=== PATIENT | male | born 1930 | race Caucasian/White ===

== ENCOUNTER 2017-02-20 15:46 | Observation (INO) ==
--- NOTE | 2017-02-20 16:18 | Emergency Department Note ---
Disposition Clinical Impression: CHF (congestive heart failure) Qualifiers: Congestive heart failure type: unspecified congestive heart failure type Congestive heart failure chronicity: unspecified congestive heart failure chronicity Qualified Code(s): I50.9 - Heart failure, unspecified Dyspnea Qualifiers: Dyspnea type: unspecified Qualified Code(s): R06.00 - Dyspnea, unspecified Disposition: Admitted As Inpatient Condition: Fair General Adult HPI - General Chief complaint: ED Shortness of Breath/Dyspnea Stated complaint: SOB / dizzy Time Seen by Provider: 02/20/17 16:12 Source: patient, family Mode of arrival: ambulatory Limitations: no limitations Nursing Notes Reviewed: Yes Vital Signs Reviewed: Yes - History of Present Illness HPI Narrative: 86-year-old male history of CVA, coronary artery disease, hypertension presents for evaluation of generalized weakness, lightheadedness and dizziness. Patient also reports shortness of breath. Noted symptoms of been intermittent over the past 2-3 weeks. Patient has seen his primary care physician in the interim. Patient notes shortness of breath that is worse with exertion but also at rest. Notes lightheadedness and "dizziness". Patient is not able to accurately describe the dizziness. Not related to motion of the room are spinning. Patient states is not symptomatically currently. Denies any falls. Does note to be on anechoic lesion with Coumadin which he presumes is from a stroke in the past. No deficits noted from the stroke. Denies any abdominal pain but does note a history of diverticulitis. Denies any dark tarry stools or blood in the stool. Denies any chest pain. Reports his last, was a proximally 4 days ago. Pain Scale: 0 - Related Data Allergies Allergy/AdvReac Type Severity Reaction Status Date / Time No Known Allergies Allergy Verified 02/20/17 15:51 All systems ED: reviewed and negative except as stated. Constitutional: Reports: as per HPI. Denies: fever Eyes: Reports: as per HPI ENT ED: Reports: as per HPI Cardiovascular: Reports: as per HPI Respiratory: Reports: as per HPI, dyspnea. Denies: cough Gastrointestinal: Reports: as per HPI. Denies: abdominal pain, nausea, vomiting Genitourinary: Reports: as per HPI Musculoskeletal: Reports: as per HPI Integumentary: Reports: as per HPI Neurological: Reports: as per HPI Psychiatric: Reports: as per HPI Endocrine: Reports: as per HPI Hematological/Lymphatic: Reports: as per HPI Past Medical History - Past Medical History Medical history: Reports: CVA, hypertension, myocardial infarction - Social History Smoking Status: Former smoker Smokeless Tobacco Status: No Alcohol use: Reports: none Drug use: Reports: none Physical Exam - General Limitations: no limitations General appearance: alert, in no apparent distress - Head Head exam: atraumatic, normocephalic, normal inspection - Eye Eye exam: Present: normal appearance, EOMI - ENT ENT exam: normal exam, mucous membranes moist - Neck Neck exam: Present: normal inspection, trachea midline - Chest Chest inspection: Present: normal inspection, symmetric chest wall rise - Respiratory Respiratory exam: Present: normal lung sounds bilaterally. Absent: respiratory distress - Cardiovascular Cardiovascular exam: Present: regular rate, normal rhythm. Absent: systolic murmur - Abdominal Exam Abdominal exam: Present: soft, Non-Tender - Extremities Exam Extremities exam: Present: normal inspection. Absent: pedal edema - Back Exam Back exam: Present: normal inspection. Absent: CVA tenderness (R), CVA tenderness (L) - Neurological Exam Neurological exam: Present: alert, oriented X3, CN II-XII intact - Expanded Neurological Exam Patient oriented to: Present: person, place, time Speech: Present: fluid speech Cranial nerves: EOM function (II, III, IV, ): Normal, facial sensation (V): Normal, facial palsy (VII): Normal, spinal accessory function (XI): Normal, tongue deviation (XII): Normal Cerebellar function: finger to nose: Normal Motor strength - LUE: 5/5 Motor strength - RUE: 5/5 Motor strength - LLE: 5/5 Motor strength - RLE: 5/5 Coma Scale Eye Opening: Spontaneous Coma Scale Motor Response: Obeys Commands Coma Scale Verbal Response: Oriented Coma Scale Total: 15 Course Course Narrative: Patient seen and examined. Patient no acute distress. Patient will get cardiopulmonary evaluation including chest x-ray, EKG and lab work. Disposition is pending. Patient has a nonfocal neurologic exam. Patient is not symptomatically dizziness at this point. Patient denies any history of falls. No reason initially for head CT. - Reevaluation(s) Reevaluation #1: resting in no acute distress. Time: 18:22 Vital Signs Temperature 97.9 F 02/20/17 15:47 Pulse Rate 67 05/06/17 15:47 Respiratory Rate 16 02/20/17 15:47 Blood Pressure 206/102 02/20/17 15:47 O2 Sat by Pulse Oximetry 96 02/20/17 15:47 Temperature 97.9 F 02/20/17 15:47 Pulse Rate 63 02/20/17 17:46 Respiratory Rate 20 02/20/17 17:46 Blood Pressure 183/97 02/20/17 17:46 O2 Sat by Pulse Oximetry 97 02/20/17 17:46 Oxygen Delivery Oxygen Delivery Nasal Cannula Medical Decision Making - [facility] Narrative Medical decision making narrative: 86-year-old male penis for evaluation of dyspnea. Patient's dyspnea likely related to worsening heart failure. Patient had echo performed last urinary EF of 45%. Patient's symptoms described appeared to be related to heart failure with dyspnea on exertion and also reports some orthopnea. Patient was tried on a diuretic pill 1 time dose in the past. Patient was given Lasix 40 mg IV in the emergency department. Patient was not in respiratory compromise to warrant any nitroglycerin. Patient would likely benefit from inpatient admission, trending troponin. Repeat echo as well as gradual diuresis. This information was discussed with the patient. Patient agrees with plan of care. Patient states he has never had a history of heart failure however this is difficult to believe given the patient's heart history. - Medical Records Medical records reviewed: Yes I reviewed the patient's medical records. - Lab Data Lab results reviewed: Yes I reviewed the patient's lab results. Result diagrams: 02/20/17 16:42 02/20/17 16:42 Lab Results 02/20/17 02/20/17 02/20/17 Range/Units 16:42 16:42 16:42 WBC 5.6 (4.3-11.1) K/mcL RBC 4.61 (4.19-5.50) M/mcL Hgb 13.5 (12.9-16.9) g/dL Hct 40.2 (37.5-50.1) % MCV 87.2 (83.0-100.0) fL MCH 29.3 (28.0-33.3) pg MCHC 33.6 (31.6-35.5) g/dL RDW 13.6 (11.5-14.5) % Plt Count 185 (140-400) K/mcL MPV 11.4 (9.4-12.4) fL Immature Gran % 0.4 (0-4) % Seg Neutrophils % 57.8 % Lymphocytes % 24.4 % Monocytes % 12.1 % Eosinophils % 3.9 % Basophils % 1.4 % Neutrophils # 3.2 (1.6-8.9) K/mcL Lymphocytes # 1.4 (0.6-4.6) K/mcL Monocytes # 0.7 (0.0-1.3) K/mcL Eosinophils # 0.2 (0.0-0.6) K/mcL Basophils # 0.1 (0.0-0.2) K/mcL PT (9.4-12.1) Seconds INR Sodium 136 (136-145) mEq/L Potassium 3.9 (3.5-4.5) mEq/L Chloride 102 (98-109) mEq/L Carbon Dioxide 24 (19-29) mEq/L BUN 10 (8-26) mg/dL Creatinine 1.00 (0.72-1.25) mg/dL Est GFR ( Amer) > 60 (> 60) Est GFR (Non-Af Amer) > 60 (> 60) BUN/Creatinine Ratio 10 (6-26) Glucose 92 (70-99) mg/dL Calculated Osmolality 281 (280-300) Lactic Acid 1.2 (0.5-2.2) mmol/L Calcium 9.0 (8.6-10.8) mg/dL Total Bilirubin 1.9 H (0.2-1.2) mg/dL Direct Bilirubin 0.8 H (0.0-0.5) mg/dL Indirect Bilirubin 1.1 (0.0-1.2) mg/dL AST 22 (5-34) Units/L ALT 19 (0-55) Units/L Alkaline Phosphatase 103 (38-126) Units/L Troponin I (0-0.03) ng/mL B-Natriuretic Peptide (0-100) pg/mL Serum Total Protein 6.7 (6.0-8.3) g/dL Albumin 3.7 (3.5-5.0) g/dL Globulin 3.0 (2.4-3.5) g/dL Albumin/Globulin Ratio 1.2 (1.1-2.2) 02/20/17 02/20/17 02/20/17 Range/Units 16:42 16:42 16:42 WBC (4.3-11.1) K/mcL RBC (4.19-5.50) M/mcL Hgb (12.9-16.9) g/dL Hct (37.5-50.1) % MCV (83.0-100.0) fL MCH (28.0-33.3) pg MCHC (31.6-35.5) g/dL RDW (11.5-14.5) % Plt Count (140-400) K/mcL MPV (9.4-12.4) fL Immature Gran % (0-4) % Seg Neutrophils % % Lymphocytes % % Monocytes % % Eosinophils % % Basophils % % Neutrophils # (1.6-8.9) K/mcL Lymphocytes # (0.6-4.6) K/mcL Monocytes # (0.0-1.3) K/mcL Eosinophils # (0.0-0.6) K/mcL Basophils # (0.0-0.2) K/mcL PT 38.3 H (9.4-12.1) Seconds INR 3.4 Sodium (136-145) mEq/L Potassium (3.5-4.5) mEq/L Chloride (98-109) mEq/L Carbon Dioxide (19-29) mEq/L BUN (8-26) mg/dL Creatinine (0.72-1.25) mg/dL Est GFR ( Amer) (> 60) Est GFR (Non-Af Amer) (> 60) BUN/Creatinine Ratio (6-26) Glucose (70-99) mg/dL Calculated Osmolality (280-300) Lactic Acid (0.5-2.2) mmol/L Calcium (8.6-10.8) mg/dL Total Bilirubin (0.2-1.2) mg/dL Direct Bilirubin (0.0-0.5) mg/dL Indirect Bilirubin (0.0-1.2) mg/dL AST (5-34) Units/L ALT (0-55) Units/L Alkaline Phosphatase (38-126) Units/L Troponin I 0.01 (0-0.03) ng/mL B-Natriuretic Peptide 693 H (0-100) pg/mL Serum Total Protein (6.0-8.3) g/dL Albumin (3.5-5.0) g/dL Globulin (2.4-3.5) g/dL Albumin/Globulin Ratio (1.1-2.2) - Radiology Data Radiology results reviewed: Yes I reviewed the patient's radiology results. Chest X-Ray 02/20/17 16:14 IMPRESSION: 1. Cardiomegaly with prominent pulmonary vasculature and basilar opacities with bilateral effusions. Findings are suggestive of mild congestive heart failure. D/ / 02/20/2017 16:43:23 Becky Turner MD / [facility]arter Interpreting Provider: Becky Turner MD - EKG Data EKG #1 EKG results narrative: Ventricular paced rhythm at a rate of 65. No notable ST deviation. QTC of 438. T wave inversions noted in: II, III, aVF, v3, v4, v5 Interpretation: no acute changes, nonspecific ST-T wave changes S.B.A.R. - S.B.A.RDarrel Situation: Demographics, MOA Background: Presenting Complaint Assessment: Vital Signs, Course and respsone to treatment, Patient/Family Expectation Recommendation: Barrier(s) to disposition, Recommendation based on pending studies, treatments, or consults S.B.A.RDarrel Report Given to: Dr. Ken Osorio Repor Time: 18:02
[2017-02-20 16:53] LABS: Basophils # 0.1 K/mcL (0.0-0.2); Basophils % 1.4 %; Eosinophils # 0.2 K/mcL (0.0-0.6); Eosinophils % 3.9 %; Hematocrit 40.2 % (37.5-50.1); Hemoglobin 13.5 g/dL (12.9-16.9); Immature Granulocytes % 0.4 % (0-4); Lymphocytes # 1.4 K/mcL (0.6-4.6); Lymphocytes % 24.4 %; Mean Corpuscular HGB Conc 33.6 g/dL (31.6-35.5); Mean Corpuscular Hemoglobin 29.3 pg (28.0-33.3); Mean Corpuscular Volume 87.2 fL (83.0-100.0); Mean Platelet Volume 11.4 fL (9.4-12.4); Monocytes # 0.7 K/mcL (0.0-1.3); Monocytes % 12.1 %; Neutrophils # 3.2 K/mcL (1.6-8.9); Platelet Count 185 K/mcL (140-400); Red Blood Count 4.61 M/mcL (4.19-5.50); Red Cell Distribution Width 13.6 % (11.5-14.5); Segmented Neutrophils % 57.8 %
[2017-02-20 17:01] LABS: INR 3.4; Prothrombin Time 38.3 Seconds (9.4-12.1)
[2017-02-20 17:08] LABS: Alanine Aminotransferase 19 Units/L (0-55); Albumin 3.7 g/dL (3.5-5.0); Albumin/Globulin Ratio 1.2 (1.1-2.2); Alkaline Phosphatase 103 Units/L (38-126); Aspartate Amino Transferase 22 Units/L (5-34); BUN/Creatinine Ratio 10 (6-26); Bilirubin,Direct 0.8 mg/dL (0.0-0.5); Bilirubin,Indirect 1.1 mg/dL (0.0-1.2); Bilirubin,Total 1.9 mg/dL (0.2-1.2); Blood Urea Nitrogen 10 mg/dL (8-26); Carbon Dioxide 24 mEq/L (19-29); Chloride 102 mEq/L (98-109); Glucose 92 mg/dL (70-99); Osmolality,Calculated 281 (280-300); Potassium 3.9 mEq/L (3.5-4.5); Sodium 136 mEq/L (136-145); Total Protein 6.7 g/dL (6.0-8.3); eGFR For African Americans > 60 (> 60); eGFR For Non-African Americans > 60 (> 60)
[2017-02-20] MEDS ORDERED: Furosemide 40 MG/4 ML VIAL IVP ONE (17:34)
--- NOTE | 2017-02-20 17:35 | Emergency Department Note ---
Disposition Clinical Impression: CHF (congestive heart failure), Dyspnea Disposition: Admitted As Inpatient Condition: Fair General Adult HPI - General Chief complaint: ED Shortness of Breath/Dyspnea Stated complaint: SOB / dizzy Time Seen by Provider: 02/20/17 16:12 Source: patient, family Mode of arrival: ambulatory Limitations: no limitations - History of Present Illness Pain Scale: 0 - Related Data Home Medications Medication Instructions Recorded Confirmed Celecoxib [Celebrex] 200 mg PO DAILY 02/20/17 02/20/17 Docusate Sodium [Stool Softener] 100 mg PO BID 02/20/17 02/20/17 Lisinopril [Zestril] 20 mg PO DAILY 02/20/17 02/20/17 Simvastatin [Zocor] 80 mg PO DAILY 02/20/17 02/20/17 Tamsulosin [Flomax] 0.8 mg PO HS 02/20/17 02/20/17 Warfarin Sodium 5 mg PO DAILY 02/20/17 02/20/17 Allergies Allergy/AdvReac Type Severity Reaction Status Date / Time No Known Allergies Allergy Verified 02/20/17 15:51 Constitutional: Reports: as per HPI. Denies: fever Eyes: Reports: as per HPI ENT ED: Reports: as per HPI Cardiovascular: Reports: as per HPI Respiratory: Reports: as per HPI, dyspnea. Denies: cough Gastrointestinal: Reports: as per HPI. Denies: abdominal pain, nausea, vomiting Genitourinary: Reports: as per HPI Musculoskeletal: Reports: as per HPI Integumentary: Reports: as per HPI Neurological: Reports: as per HPI Psychiatric: Reports: as per HPI Endocrine: Reports: as per HPI Hematological/Lymphatic: Reports: as per HPI Past Medical History - Past Medical History Medical history: Reports: CVA, hypertension, myocardial infarction - Social History Smoking Status: Former smoker Smokeless Tobacco Status: No Alcohol use: Reports: none Drug use: Reports: none Physical Exam - General Limitations: no limitations General appearance: alert, in no apparent distress Course - Reevaluation(s) Reevaluation #1: I saw the patient with the resident, Dr. Lieberman. The patient presented with a complaint of shortness of breath. I will go with the patient he describes orthopnea. He says last night was particularly bad. He also talks about dyspnea on exertion. The severity is indicated by the fact that he cannot walk across a room in his house without "huffing and puffing". On exam he has some crackles at the end of inspiration at the bases posteriorly. He has some edema , right leg greater than left. Patient and deny that the patient has any history of CHF. They state that he is not on any diuretics. However he went to the nurse practitioner at the private physician's office a week and a half ago and was given a one-time dose of diuretic but he does not feel better, in fact he feels worse. Patient is to be admitted to the hospital for diuresis and evaluation of his congestive heart failure. He has a lot of other cardiac issues so I am hard pressed to believe he has never been diagnosed with CHF before but that can be clarified while he is in house. Time: 17:35 Vital Signs Temperature 97.9 F 02/20/17 15:47 Pulse Rate 67 02/20/17 15:47 Respiratory Rate 16 02/20/17 15:47 Blood Pressure 206/102 02/20/17 15:47 O2 Sat by Pulse Oximetry 96 02/20/17 15:47 Temperature 97.9 F 02/21/17 11:43 Pulse Rate 81 02/21/17 11:43 Respiratory Rate 18 02/21/17 11:43 Blood Pressure 140/78 02/21/17 11:43 O2 Sat by Pulse Oximetry 96 02/21/17 11:43 Oxygen Delivery Oxygen Delivery Nasal Cannula Medical Decision Making - Lab Data Result diagrams: 02/21/17 03:46 02/21/17 03:46 Lab Results 02/20/17 02/20/17 02/20/17 Range/Units 16:42 16:42 16:42 WBC 5.6 (4.3-11.1) K/mcL RBC 4.61 (4.19-5.50) M/mcL Hgb 13.5 (12.9-16.9) g/dL Hct 40.2 (37.5-50.1) % MCV 87.2 (83.0-100.0) fL MCH 29.3 (28.0-33.3) pg MCHC 33.6 (31.6-35.5) g/dL RDW 13.6 (11.5-14.5) % Plt Count 185 (140-400) K/mcL MPV 11.4 (9.4-12.4) fL Immature Gran % 0.4 (0-4) % Seg Neutrophils % 57.8 % Lymphocytes % 24.4 % Monocytes % 12.1 % Eosinophils % 3.9 % Basophils % 1.4 % Neutrophils # 3.2 (1.6-8.9) K/mcL Lymphocytes # 1.4 (0.6-4.6) K/mcL Monocytes # 0.7 (0.0-1.3) K/mcL Eosinophils # 0.2 (0.0-0.6) K/mcL Basophils # 0.1 (0.0-0.2) K/mcL PT (9.4-12.1) Seconds INR Sodium 136 (136-145) mEq/L Potassium 3.9 (3.5-4.5) mEq/L Chloride 102 (98-109) mEq/L Carbon Dioxide 24 (19-29) mEq/L BUN 10 (8-26) mg/dL Creatinine 1.00 (0.72-1.25) mg/dL Est GFR ( Amer) > 60 (> 60) Est GFR (Non-Af Amer) > 60 (> 60) BUN/Creatinine Ratio 10 (6-26) Glucose 92 (70-99) mg/dL Calculated Osmolality 281 (280-300) Lactic Acid 1.2 (0.5-2.2) mmol/L Calcium 9.0 (8.6-10.8) mg/dL Total Bilirubin 1.9 H (0.2-1.2) mg/dL Direct Bilirubin 0.8 H (0.0-0.5) mg/dL Indirect Bilirubin 1.1 (0.0-1.2) mg/dL AST 22 (5-34) Units/L ALT 19 (0-55) Units/L Alkaline Phosphatase 103 (38-126) Units/L Troponin I (0-0.03) ng/mL B-Natriuretic Peptide (0-100) pg/mL Serum Total Protein 6.7 (6.0-8.3) g/dL Albumin 3.7 (3.5-5.0) g/dL Globulin 3.0 (2.4-3.5) g/dL Albumin/Globulin Ratio 1.2 (1.1-2.2) 05/06/17 05/06/17 05/06/17 Range/Units 16:42 16:42 16:42 WBC (4.3-11.1) K/mcL RBC (4.19-5.50) M/mcL Hgb (12.9-16.9) g/dL Hct (37.5-50.1) % MCV (83.0-100.0) fL MCH (28.0-33.3) pg MCHC (31.6-35.5) g/dL RDW (11.5-14.5) % Plt Count (140-400) K/mcL MPV (9.4-12.4) fL Immature Gran % (0-4) % Seg Neutrophils % % Lymphocytes % % Monocytes % % Eosinophils % % Basophils % % Neutrophils # (1.6-8.9) K/mcL Lymphocytes # (0.6-4.6) K/mcL Monocytes # (0.0-1.3) K/mcL Eosinophils # (0.0-0.6) K/mcL Basophils # (0.0-0.2) K/mcL PT 38.3 H (9.4-12.1) Seconds INR 3.4 Sodium (136-145) mEq/L Potassium (3.5-4.5) mEq/L Chloride (98-109) mEq/L Carbon Dioxide (19-29) mEq/L BUN (8-26) mg/dL Creatinine (0.72-1.25) mg/dL Est GFR ( Amer) (> 60) Est GFR (Non-Af Amer) (> 60) BUN/Creatinine Ratio (6-26) Glucose (70-99) mg/dL Calculated Osmolality (280-300) Lactic Acid (0.5-2.2) mmol/L Calcium (8.6-10.8) mg/dL Total Bilirubin (0.2-1.2) mg/dL Direct Bilirubin (0.0-0.5) mg/dL Indirect Bilirubin (0.0-1.2) mg/dL AST (5-34) Units/L ALT (0-55) Units/L Alkaline Phosphatase (38-126) Units/L Troponin I 0.01 (0-0.03) ng/mL B-Natriuretic Peptide 693 H (0-100) pg/mL Serum Total Protein (6.0-8.3) g/dL Albumin (3.5-5.0) g/dL Globulin (2.4-3.5) g/dL Albumin/Globulin Ratio (1.1-2.2) Attestation Statement - Attestation Attestation: I, Dr. Fitzgerald, examined this patient [id number] and my medical decision- making was reviewed with Dr. Lieberman, Resident Physician. I agree with the documented findings, disposition and treatment plan as described except to the extent set forth below. Please see my progress notes for details.
[2017-02-20] MEDS ORDERED: Acetaminophen 325 MG TABLET PO PRN (19:50)
[2017-02-20] MEDS ORDERED: Ondansetron 4 MG/2 ML VIAL IVP PRN (19:50)
--- NOTE | 2017-02-20 20:02 | Internal Med History&Physical ---
Date of Encounter: 02/20/17 Time of Encounter: 19:10 Assessment and Plan (1) CHF exacerbation Current visit: Yes Status: Acute Patient has a history of CHF. His old chart has been reviewed, echo shows LVEF 45%. He has increased shortness of breath. Chest x-ray shows pulmonary congestion. BNP is elevated. - We will treat patient with CHF exacerbation. - Lasix 40 mg IV twice a day - Continuous cardiac monitoring - Strict intake and output - Continue beta swapna and BROOKE inhibitor Qualifiers: Congestive heart failure type: systolic Qualified Code(s): I50.23 - Acute on chronic systolic (congestive) heart failure (2) A-fib Current visit: Yes Status: Chronic Heart rate is well controlled. On coumadin. Qualifiers: Atrial fibrillation type: chronic Qualified Code(s): I48.2 - Chronic atrial fibrillation (3) Hypertension Current visit: Yes Status: Acute Continue home medication. Hydralazine IV as needed. Closely follow up blood pressure. Qualifiers: Hypertension type: essential hypertension Qualified Code(s): I10 - Essential (primary) hypertension (4) DVT prophylaxis Current visit: Yes Status: Acute Patient is on Coumadin Internal Medicine - H&P: HPI Chief complaint: Shortness of breath Admitted From: Home Plans for Post Hospital Care: Home History of present illness: Mr. Garcia is a 86 year old male with a known history of systolic CHF, LVEF 45%, A. fib, hypertension present to ER for worsening shortness of breath and leg swelling. Patient said that he started to have shortness of breath since 3 weeks ago, symptoms is getting worse, with bilateral leg swelling. Patient complaint mild nausea, no vomiting. He denies chest pain. He has mild lightheaded and dizziness. He has no fever. He has a mild nonproductive cough. Patient was treated at CHF exacerbation in the emergency room and was given Lasix 40 mg IV. After treatment symptoms improved significantly. Patient is admitted for further management. I have discussed the CODE STATUS with patient. He is full code. Past Med Surg Social Fam HX - Past Medical History Medical history: CVA, hypertension, myocardial infarction - Social History Smoking Status: Former smoker Smokeless Tobacco Status: No Alcohol use: none Drug use: none Internal Medicine - H&P: Meds Allergies No Known Allergies Allergy (Verified 02/20/17 15:51) All Systems PM: A 10-system review of systems was performed and is negative for pertinent findings except as documented above in the HPI. - Constitutional Vitals: Temp Pulse Resp BP Pulse Ox 97.4 F L 76 18 201/96 94 02/20/17 19:20 02/20/17 19:20 02/20/17 19:20 02/20/17 19:20 02/20/17 19:20 General appearance: Present: A&O X 3, no acute distress, answers questions appropriately - Head Head exam: Present: atraumatic, normocephalic - Eye Eye exam: Present: PERRL, conjuntiva pink, sclera anicteric Pupils: Present: PERRL - Neck Neck exam general surgery: Present: supple, trachea midline. Absent: lymphadenopathy - Respiratory Respiratory exam: Present: CTAB. Absent: accessory muscle use, rales, rhonchi, wheezes - Cardiovascular Cardiovascular exam: Present: irregular rhythm, +S1, +S2. Absent: diastolic murmur, gallop, rubs, systolic murmur - GI/Abdominal GI/Abdominal exam: Present: normal bowel sounds, soft, no peritoneal signs. Absent: distended, tenderness - Extremities Exam Extremities exam: Present: pedal edema (Bilateral lower extremity edema up to knee), warm, radial pulses palpable and symetrical. Absent: calf tenderness, cyanotic - Neurological Exam Neurological exam: Present: CN II-XII intact, oriented X3, no focal deficits. Absent: pronater drift, facial droop, speech deficit - Skin Skin exam: Present: dry, intact Internal Med - H&P Results - Labs CBC & Chem 7: 02/20/17 16:42 02/20/17 16:42
[2017-02-21 04:02] LABS: Basophils % 0.7 %; Eosinophils # 0.2 K/mcL (0.0-0.6); Eosinophils % 4.1 %; Hematocrit 38.4 % (37.5-50.1); Hemoglobin 13.1 g/dL (12.9-16.9); Immature Granulocytes % 0.2 % (0-4); Lymphocytes # 1.3 K/mcL (0.6-4.6); Lymphocytes % 23.8 %; Mean Corpuscular HGB Conc 34.1 g/dL (31.6-35.5); Mean Corpuscular Hemoglobin 29.2 pg (28.0-33.3); Mean Corpuscular Volume 85.7 fL (83.0-100.0); Mean Platelet Volume 11.2 fL (9.4-12.4); Monocytes # 0.6 K/mcL (0.0-1.3); Neutrophils # 3.2 K/mcL (1.6-8.9); Platelet Count 184 K/mcL (140-400); Red Blood Count 4.48 M/mcL (4.19-5.50); Red Cell Distribution Width 13.5 % (11.5-14.5); Segmented Neutrophils % 59.2 %
[2017-02-21 04:10] LABS: Prothrombin Time 45.2 Seconds (9.4-12.1)
[2017-02-21 04:19] LABS: BUN/Creatinine Ratio 11 (6-26); Blood Urea Nitrogen 9 mg/dL (8-26); Calcium 8.8 mg/dL (8.6-10.8); Carbon Dioxide 27 mEq/L (19-29); Chloride 104 mEq/L (98-109); Glucose 94 mg/dL (70-99); Magnesium 2.1 mg/dL (1.6-2.6); Osmolality,Calculated 286 (280-300); Potassium 3.3 mEq/L (3.5-4.5); Sodium 139 mEq/L (136-145); eGFR For African Americans > 60 (> 60); eGFR For Non-African Americans > 60 (> 60)
[2017-02-21] MEDS ORDERED: Potassium Chloride Elixir 20 MEQ/15 ML UDC PO ONE (07:52)
[2017-02-21] MEDS ORDERED: Furosemide 40 MG/4 ML VIAL IVP SCH (08:00)
[2017-02-21] MEDS: Lisinopril 20 MG TABLET PO SCH (08:24)
[2017-02-21] MEDS: Furosemide 40 MG/4 ML VIAL IVP SCH ×2 (08:24→17:15)
[2017-02-21] MEDS: Celecoxib 200 MG CAPSULE PO SCH (08:24)
--- NOTE | 2017-02-21 12:12 | Internal Med Progress Note ---
Date of Encounter: 02/21/17 Time of Encounter: 11:25 - Assessment and plan (1) CHF exacerbation Current Visit: Yes Status: Acute Assessment and plan: Patient presented with significant dyspnea, pedal edema, hypoxia, elevated BNP; improving currently. Troponins noted to be normal. Continue IV Lasix, noted to have good urine output with neck negative fluid balance of at least 3 L. Monitor and replete electrolytes. Continue fluid restriction, urine output monitoring. Continue beta swapna and telemetry monitoring. Echocardiogram from April 2016 shows 45% EF, mild biventricular dilation, mild to moderate aortic and tricuspid regurgitation, mild pulmonary hypertension. Repeat echocardiogram. Supportive care, supplemental oxygen. Qualifiers: Congestive heart failure type: systolic Qualified Code(s): I50.23 - Acute on chronic systolic (congestive) heart failure (2) CAD (coronary artery disease) Current Visit: Yes Status: Chronic Assessment and plan: Troponins normal. Continue telemetry monitoring and home medications. Qualifiers: Coronary Disease-Associated Artery/Lesion type: bypass graft [place] vs. transplanted heart: [place] heart Associated angina: without angina Qualified Code(s): I25.810 - Atherosclerosis of coronary artery bypass graft(s) without angina pectoris (3) A-fib Current Visit: Yes Status: Chronic Assessment and plan: Currently rate controlled. s/p PPM placement. Continue beta swapna, long-term anticoagulation with Coumadin. Coumadin is currently held due to INR of 4. Qualifiers: Atrial fibrillation type: chronic Qualified Code(s): I48.2 - Chronic atrial fibrillation (4) Hypertension Current Visit: Yes Status: Chronic Assessment and plan: Noted to have uncontrolled hypertension initially, currently improving with home medications. Qualifiers: Hypertension type: essential hypertension Qualified Code(s): I10 - Essential (primary) hypertension - Subjective Interval history: Feels much better with IV Lasix per patient; improving shortness of breath and fatigue; continues to have hacking intermittent cough with occasional mucus production; no fever/chills; improving leg swelling; - Constitutional Vitals: Temp Pulse Resp BP Pulse Ox 97.9 F 81 18 140/78 96 02/21/17 11:43 02/21/17 11:43 02/21/17 11:43 02/21/17 11:43 02/21/17 11:43 General appearance: Present: A&O X 3, answers questions appropriately - Respiratory Respiratory exam: Present: wheezes (B/L end-expiratory wheezing at B/L bases). Absent: accessory muscle use, rales, rhonchi - Cardiovascular Cardiovascular exam: Present: irregular rhythm, +S1, +S2. Absent: diastolic murmur, gallop, rubs, systolic murmur - GI/Abdominal GI/Abdominal exam: Present: normal bowel sounds, soft, no peritoneal signs. Absent: distended, tenderness - Extremities Exam Extremities exam: Present: full ROM, pedal edema (1+ pitting pedal edema B/L), warm, radial pulses palpable and symetrical. Absent: calf tenderness, cyanotic Internal Medicine: Result - Labs CBC & Chem 7: 02/21/17 03:46 02/21/17 03:46 Labs: Short CBC 02/21/17 Range/Units 03:46 WBC 5.3 (4.3-11.1) K/mcL Hgb 13.1 (12.9-16.9) g/dL Hct 38.4 (37.5-50.1) % Plt Count 184 (140-400) K/mcL Neutrophils # 3.2 (1.6-8.9) K/mcL BMP 02/21/17 03:46 Sodium 139 Potassium 3.3 L Chloride 104 Carbon Dioxide 27 BUN 9 Creatinine 0.85 Glucose 94 Calcium 8.8 - ABG Interpretation ABG results: PT/INR, D-dimer PT 45.2 Seconds (9.4-12.1) H* 02/21/17 03:46 Consult Discharge Plan - Plan Referrals: Chato Leos MD [Primary Care Provider] -
--- NOTE | 2017-02-21 16:45 | ECHO - Doppler Report ---
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 Indeterminate left venticular diastoic function Atypical septal motion. RV is normal in size. Function not well evaluated. Mild- moderate aortic regurgitation. Mild mitral regurgitation. Mild-moderate tricuspid regurgitation. Mild pulmonic regurgitation. Mild pulmonary hypertension. Left Ventricular Wall Motion: Rest Echo Findings The mid anterior septal and basal anterior septal machado were hypokinetic. The mid inferior lateral and basal inferior lateral machado were not visualized. All other wall segments showed normal motion. Findings: Study Quality * Technically adequate exam. ECG Findings * Predominately paced with intermittent conduction. Left Ventricle * Indeterminate diastolic function. * LVEF 50%. * Normal LV size. Aorta * Normally sized aortic root. Left Atrium * Severely dilated left atrium. Mitral Valve * No mitral stenosis. * Mild mitral regurgitation. * Mildly calcified mitral valve leaflets. Aortic Valve * Trileaflet aortic valve. * Mildly calcified aortic valve leaflets. * No aortic stenosis. * Mild-moderate aortic regurgitation. Tricuspid Valve * Normal tricuspid valve structure. * Mild-moderate tricuspid regurgitation. * Estimated RA pressure is 3 mmHg. * Estimated RVSP is 47 mmHg. * Mild pulmonary hypertension. Pulmonic Valve * Pulmonic valve is not well visualized. * No pulmonic stenosis. * Mild pulmonic regurgitation. Pulmonary Artery * Pulmonary artery not well visualized. Right Atrium * Normal right atrial size. Right Ventricle * RV is normal in size. Lat S Bryon may not be reliable due to pacing. Function is not well evaluated. Subcostal views are not well visualized. Interatrial Septum * No evidence of PFO by color Doppler. Pericardium * There is no pericardial effusion present. IVC * Normal IVC dimensions and inspiratory collapse. History Hypertension Years 20 Packs 2 Myocardial Infarction Coronary Artery Bypass Graft Congestive Heart Failure Pacer/ICD Implant 04/28/2016 a Previous Echo was performed. Measurements: BP: 145/ 70 2D Normal Values RVIDd: 4.00 cm <2.7 cm IVSd: 2.20 cm 0.6 - 1.0 cm LVIDd: 4.20 cm 3.7 - 5.6 cm LVPWd: 1.50 cm 0.6 - 1.1 cm LVIDs: 3.30 cm 1.5 - 3.6 cm LA: 5.10 cm 2.0 - 4.0cm %FS: 21.40 cm >25 % LVOT Diam: 2.00 cm LA volume: 229 Mitral Valve Peak E:.92 m/sec LVOT Peak Bryon:1.08 m/sec Mean Bryon:.71 m/sec Peak Grad:5.00 mmHg Mean Grad:2.00 mmHg Aortic Valve Peak Bryon:2.15 m/sec Mean Bryon:1.49 m/sec Peak Grad:18.00 mmHg Mean Grad:10.00 mmHg AI pressure Half-time: 638.00 msec Tricuspid Valve TV Regurg Peak Grad: 44.00mmHg TV Regurg Peak Bryon: 3.31m/sec Updated by Ny Carbajal on 02/21/2017 4:38:00 PM electronically signed on 02/21/2017 4:39:17 PM with status of Final Wall Motion Alber[place]: 1=Normal, 2=Hypokinesis, 3=Akinesis, 4=Dyskinesis, 5=Aneurysmal, 6=Hyperkinetic, X=Not Visualized (Blank)=Missing
[2017-02-21] MEDS ORDERED: Warfarin perPT PO PRN (18:00)
--- NOTE | 2017-02-21 18:02 | Electrocardiograph Report ---
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
[2017-02-22 03:52] LABS: INR 3.8; Prothrombin Time 42.4 Seconds (9.4-12.1)
[2017-02-22 04:04] LABS: BUN/Creatinine Ratio 14 (6-26); Blood Urea Nitrogen 15 mg/dL (8-26); Calcium 8.5 mg/dL (8.6-10.8); Carbon Dioxide 26 mEq/L (19-29); Chloride 103 mEq/L (98-109); Glucose 88 mg/dL (70-99); Magnesium 1.8 mg/dL (1.6-2.6); Osmolality,Calculated 286 (280-300); Potassium 3.6 mEq/L (3.5-4.5); Sodium 138 mEq/L (136-145); eGFR For African Americans > 60 (> 60); eGFR For Non-African Americans > 60 (> 60)
[2017-02-22] MEDS: Celecoxib 200 MG CAPSULE PO SCH (08:07)
[2017-02-22] MEDS: Furosemide 40 MG/4 ML VIAL IVP SCH (08:07)
[2017-02-22] MEDS: Lisinopril 20 MG TABLET PO SCH (08:07)
[2017-02-22 11:11] VITALS: BP 132/73
--- NOTE | 2017-02-22 13:39 | Discharge Summary ---
Date of Encounter: 02/22/17 Time of Encounter: 11:40 - Discharge Diagnosis (1) CHF exacerbation Priority: Primary Status: Acute Qualifiers: Congestive heart failure type: combined Qualified Code(s): I50.43 - Acute on chronic combined systolic (congestive) and diastolic (congestive) heart failure (2) CAD (coronary artery disease) Priority: Secondary Status: Chronic Qualifiers: Coronary Disease-Associated Artery/Lesion type: bypass graft [place] vs. transplanted heart: [place] heart Associated angina: without angina Qualified Code(s): I25.810 - Atherosclerosis of coronary artery bypass graft(s) without angina pectoris (3) A-fib Priority: Secondary Status: Chronic Qualifiers: Atrial fibrillation type: chronic Qualified Code(s): I48.2 - Chronic atrial fibrillation (4) Hypertension Priority: Secondary Status: Chronic Qualifiers: Hypertension type: essential hypertension Qualified Code(s): I10 - Essential (primary) hypertension - Discharge Medications Prescriptions: Furosemide [Lasix] 20 mg PO DAILY #30 tablet Home Medications: Celecoxib [Celebrex] 200 mg PO DAILY 02/20/17 [History] Docusate Sodium [Stool Softener] 100 mg PO BID 02/20/17 [History] Lisinopril [Zestril] 20 mg PO DAILY 02/20/17 [History] Simvastatin [Zocor] 80 mg PO DAILY 02/20/17 [History] Tamsulosin [Flomax] 0.8 mg PO HS 02/20/17 [History] Psyllium Husk [Metamucil] 5 gm PO BID 02/21/17 [History] Furosemide [Lasix] 20 mg PO DAILY #30 tablet 02/22/17 [Rx] Warfarin Sodium 5 mg PO DAILY #0 02/22/17 [Rx] Allergies/Adverse Reactions: Allergies No Known Allergies Allergy (Verified 02/20/17 15:51) Procedures/tests Complete & Pending: Procedures Performed prior 72 hours Category Date Time Status EV echocardiogram Routine Y 02/21/17 20:14 Completed Date of admission: 02/20/17 18:22 Primary care physician: Chato Leos MD Discharging clinician: Justina Allen Anticipated date of discharge: 02/22/17 - Patient Status Disposition: Home, Self-Care Condition: Good Functional capacity at discharge: independent ambulation Overall status at discharge: patient is progressing back to baseline - Discharge Instructions Instructions: Furosemide (By mouth), Heart Failure (DC) Follow Up With: Chato Huston MD [Partnered Physician] - 03/05/17 12:00 pm Krzysztof Gonzalez MD [Non-Partnered Physician] - 02/24/17 10:00 am Additional Instructions: F/up with /Cardiology in 2-3 weeks - Diet and Activity Activity: resume usual activities as tolerated Diet: low fat, low cholesterol, low salt diet (fluid restriction to 1.5L/day) Hospital course: Mr. Garcia is a 86 year old male with the above medical problems who was admitted with worsening shortness of breath and leg swelling. He was noted to have volume overload and hypoxia and was started on IV Lasix with fluid restriction, urine output monitoring. He was noted to have significant diuresis and weight loss along with neck negative fluid balance of at least 2 L during this admission. He felt symptomatically much better and no longer requires supplemental oxygen. Echocardiogram was done which showed mildly decreased EF at 50%, indeterminate left ventricular diastolic function, mild to moderate aortic and tricuspid regurgitation (old findings), mild pulmonary hypertension. He was instructed regarding fluid restriction and is being discharged on low- dose oral Lasix and is encouraged to follow up with cardiology as outpatient. Patient was noted to have supratherapeutic INR at admission and Coumadin has been held. He is on anticoagulation for chronic atrial fibrillation. Coumadin is recommended to be restarted in 2 days with close INR follow-up as outpatient. - Time Spent with Patient Total time spent providing and/or coordinating discharge services: Greater than 30 minutes (45 min) - Constitutional Vitals: Temp Pulse Resp BP Pulse Ox 97.6 F 62 16 132/73 95 02/22/17 11:11 02/22/17 11:11 02/22/17 11:11 02/22/17 11:11 02/22/17 11:11 General appearance: Present: A&O X 3, answers questions appropriately - Respiratory Respiratory exam: Present: CTAB. Absent: accessory muscle use, rales, rhonchi, wheezes - Cardiovascular Cardiovascular exam: Present: irregular rhythm, +S1, +S2. Absent: diastolic murmur, gallop, rubs, systolic murmur
[2017-02-22] MEDS ORDERED: Aminoglycoside Consult 1 EACH MC ONE (14:39)
== END 2017-02-22 14:40 | disposition home or self-care (01) ==
LOC: 3BNU 15:46 → EMEROO 15:46 → SUATTDRO 18:22 → 3BNU 18:56
PROVIDERS: ADMIT Internal Medicine; ATTEND Internal Medicine

== ENCOUNTER 2017-12-27 20:58 | Inpatient (IN) ==
[2017-12-27] MEDS ORDERED: Furosemide 40 MG/4 ML VIAL IVP ONE (23:00)
[2017-12-27] MEDS ORDERED: Nitroglycerin 0.4 MG TAB.SUBL SL ONE (23:01)
[2017-12-27 23:04] LABS: Basophils # 0.1 K/mcL (0.0-0.2); Basophils % 0.9 %; Eosinophils # 0.2 K/mcL (0.0-0.6); Eosinophils % 2.9 %; Hematocrit 39.5 % (37.5-50.1); Hemoglobin 12.8 g/dL (12.9-16.9); Immature Granulocytes % 0.4 % (0-4); Lymphocytes # 1.3 K/mcL (0.6-4.6); Lymphocytes % 22.6 %; Mean Corpuscular HGB Conc 32.4 g/dL (31.6-35.5); Mean Corpuscular Volume 86.4 fL (83.0-100.0); Mean Platelet Volume 11.9 fL (9.4-12.4); Monocytes # 0.6 K/mcL (0.0-1.3); Monocytes % 10.6 %; Neutrophils # 3.5 K/mcL (1.6-8.9); Platelet Count 129 K/mcL (140-400); Red Blood Count 4.57 M/mcL (4.19-5.50); Red Cell Distribution Width 15.2 % (11.5-14.5); Segmented Neutrophils % 62.6 %
[2017-12-27 23:22] LABS: BUN/Creatinine Ratio 13 (6-26); Blood Urea Nitrogen 14 mg/dL (8-23); Calcium 9.2 mg/dL (8.6-10.3); Carbon Dioxide 25 mEq/L (23-29); Chloride 104 mEq/L (98-107); Glucose 99 mg/dL (70-105); Osmolality,Calculated 289 (280-300); Sodium 139 mEq/L (136-145); eGFR For African Americans > 60 (> 60); eGFR For Non-African Americans > 60 (> 60)
[2017-12-27 23:23] LABS: Troponin I 0.03 ng/mL (< 0.04)
--- NOTE | 2017-12-27 23:25 | Emergency Department Note ---
START Narrative - START START: I examined this patient and my medical decision-making was reviewed with the Resident Physician. I agree with the documented findings, disposition and treatment plan as described except to the extent set forth below. 87 year old male presents to the ED with dyspnea and does not wear supplmental oxygen at home and states that he felt dyspneic and is currenlty on lasix 80mg at home and has been admitted for CHF inthe past one year ago. He states that he feels like this is simliar to that episode in the past. We will do cardiopulmoary workup and treat with lasix and likely admit tomediicne. He is 97 % on 3LNC
--- NOTE | 2017-12-27 23:40 | Emergency Department Note ---
Disposition Clinical Impression: CHF (congestive heart failure) Qualifiers: Heart failure type: unspecified Heart failure chronicity: acute on chronic Qualified Code(s): I50.9 - Heart failure, unspecified Disposition: Admitted As Inpatient Condition: Fair Time of Disposition: 01:42 SOB HPI - General Chief Complaint: ED Shortness of Breath/Dyspnea Stated Complaint: CORNELIO Time Seen by Provider: 12/27/17 22:34 Source: patient Limitations: no limitations Nursing Notes Reviewed: Yes Vital Signs Reviewed: Yes - History of Present Illness 87-year-old male presenting to department with shortness of breath. Patient has no history of COPD or asthma. He is not on any oxygen. Said for the last 2 days he has been short of breath at rest and is worsened whenever he gets up and ambulates. He is having any chest pain. Patient does have history of CHF he does take Lasix regularly. Patient did have a acute CHF exacerbation approximately one year ago but has been doing well since then. Otherwise he has no cardiac problems. He says he has had decreased bowel movements as of recently which is normal for him. He does take Ex-Lax regularly to help with his bowel movements. Patient is a a bowel movement today was a little bit smaller than normal. Patient otherwise is not having any chest pain or abdominal pain or pain or tingling of the arms or legs change in bowel movements , pain with urination, back pain, neck pain, headaches, blurry vision, fevers, nausea, vomiting. - Related Data Home Medications Medication Instructions Recorded Confirmed Celecoxib [Celebrex] 200 mg PO DAILY 02/20/17 02/21/17 Docusate Sodium [Stool Softener] 100 mg PO BID 02/20/17 02/21/17 Lisinopril [Zestril] 20 mg PO DAILY 02/20/17 02/21/17 Simvastatin [Zocor] 80 mg PO DAILY 02/20/17 02/21/17 Tamsulosin [Flomax] 0.8 mg PO HS 02/20/17 02/21/17 Psyllium Husk [Metamucil] 5 gm PO BID 02/21/17 02/21/17 Previous Rx's Medication Instructions Recorded Furosemide [Lasix] 20 mg PO DAILY #30 tablet 02/22/17 Warfarin Sodium 5 mg PO DAILY #0 02/22/17 Polyethylene Glycol 3350 [MiraLAX 1 scoop PO DAILY #510 gm 03/30/17 Powder Bulk 17.9 Oz] Allergies Allergy/AdvReac Type Severity Reaction Status Date / Time No Known Allergies Allergy Verified 02/20/17 15:51 Review of Systems: 10 point review of systems done and negative unless otherwise stated in the history of present illness. All systems ED: reviewed and negative except as stated. Review of Systems: As Per HPI Past Medical History - Past Medical History Attestation: Yes The following information was validated with the patient. Source: patient Medical history: Reports: CVA, hypertension, myocardial infarction Psychiatric history: Reports: no psych history - Social History Smoking Status: Former smoker Smokeless Tobacco Status: No Alcohol use: Reports: none Drug use: Reports: none Physical Exam - General Limitations: no limitations General appearance: alert, in no apparent distress - Head Head exam: atraumatic, normocephalic, normal inspection - Eye Eye exam: Present: normal appearance, PERRL, EOMI - ENT ENT exam: normal exam, normal oropharynx, mucous membranes moist - Neck Neck exam: Present: normal inspection, full ROM, trachea midline - Chest Chest inspection: Present: normal inspection, symmetric chest wall rise - Respiratory Respiratory exam: Present: normal lung sounds bilaterally, other (Mild rales bilaterally in the bases.) - Cardiovascular Cardiovascular exam: Present: regular rate, normal rhythm, normal heart sounds - Abdominal Exam Abdominal exam: Present: soft, Non-Tender. Absent: tenderness, distention, guarding, rebound, rigidity - Extremities Exam Extremities exam: Present: normal inspection, full ROM, normal capillary refill , pedal edema (1+ pitting edema bilaterally.). Absent: tenderness - Expanded Lower Extremity Exam Neurovascular/Tendon exam: Present: normal capillary refill. Absent: motor deficit, sensory deficit, tendon deficit - Neurological Exam Neurological exam: Present: alert, oriented X3 - Skin Skin exam: Present: warm, dry, intact, normal color Course Course Narrative: 87-year-old male presents to the emergency department with shortness of breath. He was placed on 4 L oxygen and still satting around 95% while on that he is never on oxygen in the past. This most likely due to CHF exacerbation. We will get CBC, BMP, BNP, EKG as well as troponin and EKG and chest x-ray. Patient is okay with this plan. Disposition pending results. Vital Signs Temperature 97.7 F 12/27/17 21:00 Pulse Rate 72 12/27/17 21:00 Respiratory Rate 18 12/27/17 21:00 Blood Pressure 208/113 12/27/17 21:00 O2 Sat by Pulse Oximetry 95 12/27/17 21:00 Temperature 97.7 F 12/27/17 21:00 Pulse Rate 78 12/28/17 00:25 Respiratory Rate 18 12/28/17 01:06 Blood Pressure 151/95 12/28/17 01:06 O2 Sat by Pulse Oximetry 94 12/28/17 00:25 Oxygen Delivery Oxygen Delivery Room Air Shortness of Breath/Dyspnea - MDM Narrative Medical decision making narrative: 87-year-old male presents to the emergency room with history of CHF. BNP was elevated as well as pulmonary edema bilaterally. He was on 4 L oxygen and satting 93% which is abnormal for him. Due to this patient is given sublingual nitroglycerin as well as 40 mg IV Lasix. Patient will be admitted for CHF exacerbation. I spoke with the hospitalist Dr. Montes De Oca who agreed to admit the patient to their service. Patient is admitted in stable condition. Chest X-Ray 12/27/17 21:12 IMPRESSION: Bilateral lower lung airspace disease and prominence of the interstitial markings, likely pulmonary edema. Pneumonia could also have this appearance. D/ / Kylie Duke Cha, MD / Kylie Duke Cha, MD Interpreting Provider: Kylie Duke Cha, MD - Medical Records Medical records reviewed: Yes I reviewed the patient's medical records. - Lab Data Lab results reviewed: Yes I reviewed the patient's lab results. Result diagrams: 12/27/17 22:42 12/27/17 22:42 Lab Results 12/27/17 12/27/17 12/27/17 Range/Units 22:42 22:42 22:42 WBC 5.6 (4.3-11.1) K/mcL RBC 4.57 (4.19-5.50) M/mcL Hgb 12.8 L (12.9-16.9) g/dL Hct 39.5 (37.5-50.1) % MCV 86.4 (83.0-100.0) fL MCH 28.0 (28.0-33.3) pg MCHC 32.4 (31.6-35.5) g/dL RDW 15.2 H (11.5-14.5) % Plt Count 129 L (140-400) K/mcL MPV 11.9 (9.4-12.4) fL Immature Gran % 0.4 (0-4) % Seg Neutrophils % 62.6 % Lymphocytes % 22.6 % Monocytes % 10.6 % Eosinophils % 2.9 % Basophils % 0.9 % Neutrophils # 3.5 (1.6-8.9) K/mcL Lymphocytes # 1.3 (0.6-4.6) K/mcL Monocytes # 0.6 (0.0-1.3) K/mcL Eosinophils # 0.2 (0.0-0.6) K/mcL Basophils # 0.1 (0.0-0.2) K/mcL PT (9.4-12.1) Seconds INR APTT (26.0-36.0) Seconds Sodium 139 (136-145) mEq/L Potassium 4.0 (3.5-5.1) mEq/L Chloride 104 (98-107) mEq/L Carbon Dioxide 25 (23-29) mEq/L BUN 14 (8-23) mg/dL Creatinine 1.10 (0.70-1.30) mg/dL Est GFR ( Amer) > 60 (> 60) Est GFR (Non-Af Amer) > 60 (> 60) BUN/Creatinine Ratio 13 (6-26) Glucose 99 (70-105) mg/dL Calculated Osmolality 289 (280-300) Calcium 9.2 (8.6-10.3) mg/dL Troponin I 0.03 (< 0.04) ng/mL B-Natriuretic Peptide 911 H (Less than 100) pg/mL 12/27/17 Range/Units 22:42 WBC (4.3-11.1) K/mcL RBC (4.19-5.50) M/mcL Hgb (12.9-16.9) g/dL Hct (37.5-50.1) % MCV (83.0-100.0) fL MCH (28.0-33.3) pg MCHC (31.6-35.5) g/dL RDW (11.5-14.5) % Plt Count (140-400) K/mcL MPV (9.4-12.4) fL Immature Gran % (0-4) % Seg Neutrophils % % Lymphocytes % % Monocytes % % Eosinophils % % Basophils % % Neutrophils # (1.6-8.9) K/mcL Lymphocytes # (0.6-4.6) K/mcL Monocytes # (0.0-1.3) K/mcL Eosinophils # (0.0-0.6) K/mcL Basophils # (0.0-0.2) K/mcL PT 30.2 H (9.4-12.1) Seconds INR 2.7 APTT 42.1 H (26.0-36.0) Seconds Sodium (136-145) mEq/L Potassium (3.5-5.1) mEq/L Chloride (98-107) mEq/L Carbon Dioxide (23-29) mEq/L BUN (8-23) mg/dL Creatinine (0.70-1.30) mg/dL Est GFR ( Amer) (> 60) Est GFR (Non-Af Amer) (> 60) BUN/Creatinine Ratio (6-26) Glucose (70-105) mg/dL Calculated Osmolality (280-300) Calcium (8.6-10.3) mg/dL Troponin I (< 0.04) ng/mL B-Natriuretic Peptide (Less than 100) pg/mL - Radiology Data Radiology results reviewed: Yes I reviewed the patient's radiology results.
[2017-12-28 00:05] LABS: INR 2.7; Prothrombin Time 30.2 Seconds (9.4-12.1)
[2017-12-28 00:08] LABS: Activated Partial Thrombo Time 42.1 Seconds (26.0-36.0)
[2017-12-28] MEDS ORDERED: Naloxone 0.4 MG/ML INJ IVP PRN (00:20)
[2017-12-28] MEDS ORDERED: Acetaminophen 325 MG TABLET PO PRN (00:20)
--- NOTE | 2017-12-28 00:31 | Internal Med History&Physical ---
Date of Encounter: 12/28/17 Time of Encounter: 00:10 Assessment and Plan (1) Hypertensive emergency Current visit: Yes Status: Acute 1. Will place on Nitropaste, Lasix, and Hydralazine PRN. 2. BP better now, but still elevated. 3. Likely etiology for acute pulmonary edema. 4. Will need to verify home meds and resume/adjust as appropriate. 5. Close hemodynamic monitoring. 6. Will trend troponins and EKG's. Will order ECHO if there are significant changes. Last ECHO in feb, 2017 with EF 50%. (2) CHF exacerbation Current visit: Yes Status: Acute 1. Will diurese with IV Lasix. 2. Fluid restriction. 3. Nitropaste as above. 4. Monitor fluid balance. Qualifiers: Qualified Code(s): I50.43 - Acute on chronic combined systolic (congestive) and diastolic (congestive) heart failure (3) A-fib Current visit: Yes Status: Chronic 1. Verify home meds and resume as appropriate. 2. Continue Coumadin -- consult for pharmacy dosing. 3. Daily PT/INR. Qualifiers: Atrial fibrillation type: chronic Qualified Code(s): I48.2 - Chronic atrial fibrillation (4) DVT prophylaxis Current visit: No Status: Acute 1. Anticoagulated with Coumadin -- continue. Internal Medicine - H&P: HPI Chief complaint: SOB Admitted From: Emergency Dept Plans for Post Hospital Care: Home History of present illness: Mr. Garcia is an 87 year old male who presents to the ER with complaints of SOB for 3 -4 days. His dyspnea became so severe tonight, he came to the ER for evaluation. In the ER, he was noted be in acute pulmonary edema and was given sublingual nitroglycerin and Lasix with noted steady improvement. EKG was obtained showing some subtle ischemic changes. He was subsequently admitted to the hospitalist service. Upon my assessment of the patient, he is feeling better but he is still short of breath. He denies any chest pain or tightness. He does admit to progressive and worsening shortness of breath over the last 3-4 days. He has a history of chronic systolic congestive heart failure and has been on his regular doses of Lasix. However, he has noted increasing edema and progressive dyspnea over the last few days. Of note, his blood pressure on arrival was 208/ 113. His blood pressure normally at home runs about 120-130 systolic. He denies any fevers, chills, night sweats, productive cough, vomiting, or diarrhea. He did have influenza about a month and a half ago and has recovered from that according to his . Past Med Surg Social Fam HX - Past Medical History Attestation: Yes The following information was validated with the patient. Source: patient, old records reviewed, obtained from family, other (ER staff and notes) Medical history: atrial fibrillation, CHF, coronary artery disease, CVA, hypertension, myocardial infarction Psychiatric history: no psych history - Past Surgical History Surgical History: coronary bypass (CABG), pacemaker/AICD (no AICD, pacer only) - Social History Smoking Status: Former smoker Smokeless Tobacco Status: No Alcohol use: none Drug use: none Current living situation: Home, With Family Activity Level: Independent ambulation Recent Out of Country Travel Within the Last 8 Weeks: No - Family History Mother Living Status: Hx Family Cancer: Yes Father Living Status: Hx Family Cardiac Disorders: Yes Internal Medicine - H&P: Meds Celecoxib [Celebrex] 200 mg PO DAILY 02/20/17 [History] Docusate Sodium [Stool Softener] 100 mg PO BID 02/20/17 [History] Lisinopril [Zestril] 20 mg PO DAILY 02/20/17 [History] Simvastatin [Zocor] 80 mg PO DAILY 02/20/17 [History] Tamsulosin [Flomax] 0.8 mg PO HS 02/20/17 [History] Psyllium Husk [Metamucil] 5 gm PO BID 02/21/17 [History] Furosemide [Lasix] 20 mg PO DAILY #30 tablet 02/22/17 [Rx] Warfarin Sodium 5 mg PO DAILY #0 02/22/17 [Rx] Polyethylene Glycol 3350 [MiraLAX Powder Bulk 17.9 Oz] 1 scoop PO DAILY #510 gm 03/30/17 [Rx] 3 Allergy/AdvReac Type Severity Reaction Status Date / Time No Known Allergies Allergy Verified 02/20/17 15:51 - Constitutional Constitutional: no chills, no fever(s), no night sweats - EENT Eyes: no blurry vision, no change in vision Ears: no ear pain, no tinnitus Nose, mouth and throat: no nasal congestion, no nasal discharge, no sinus pressure, no sore throat - Cardiovascular Cardiovascular ROS IM: diaphoresis, dyspnea, dyspnea on exertion, edema, orthopnea, paroxysmal nocturnal dyspnea, no chest pain, no lightheadedness, no palpitations, no syncope - Respiratory Respiratory: dyspnea, dyspnea on exertion, no cough, no hemoptysis, no wheezing , no pain on inspiration, no chest congestion, no excessive phlegm production, no change in phlegm color, no pain with cough - Gastrointestinal Gastrointestinal: no abdominal pain, no diarrhea, no hematemesis, no hematochezia, no melena, no nausea, no vomiting - Genitourinary Genitourinary ROS male: no dysuria, no flank pain, no hematuria - Musculoskeletal Musculoskeletal ROS IM: no arthralgias, no back pain, no muscle weakness - Integumentary Integumentary IM: no rash, no jaundice - Neurological Neurological ROS: no dizziness, no focal weakness, no frequent falls, no headache(s) - Psychiatric Psychiatric: no anxiety, no depression - Endocrine Endocrine IM: no polydipsia, no polyuria - Hematologic/Lymphatic Hematologic/Lymphatic: easy bruising, no lymphadenopathy - Allergic/Immunologic Allergic/Immunologic: no wheezing, no GI upset with certain foods - Constitutional Vitals: Temp Pulse Resp BP Pulse Ox 97.7 F 75 18 165/115 97 12/27/17 21:00 12/27/17 22:58 12/27/17 22:58 12/27/17 22:58 12/27/17 22:58 General appearance: Present: cooperative, mild distress, A&O X 3, pleasant, answers questions appropriately - Head Head exam: Present: atraumatic, normal inspection - Eye Eye exam: Present: EOMI, normal appearance, PERRL. Absent: scleral icterus Pupils: Present: normal accommodation - ENT ENT exam: Present: mucous membranes dry, normal exam, normal oropharynx - Neck Neck exam general surgery: Present: full ROM, supple. Absent: lymphadenopathy, tenderness, nuchal rigidity, thyromegaly - Respiratory Respiratory exam: Present: accessory muscle use, rales, respiratory distress ( moderate), rhonchi, tachypnea. Absent: chest wall tenderness, wheezes - Cardiovascular Cardiovascular exam: Present: distant heart sounds, irregular rhythm, JVD, +S1, +S2. Absent: diastolic murmur, rubs, systolic murmur - GI/Abdominal GI/Abdominal exam: Present: normal bowel sounds, soft. Absent: guarding, hepatomegaly, mass, rebound, splenomegaly, tenderness - Extremities Exam Extremities exam: Present: full ROM, normal capillary refill, pedal edema (3-4+) , warm. Absent: calf tenderness, joint swelling, tenderness - Back Exam Back exam: Absent: CVA tenderness (L), CVA tenderness (R) - Neurological Exam Neurological exam: Present: alert, CN II-XII intact, oriented X3, strengths equal and symetr throughout - Psychiatric Psychiatric exam: Present: normal affect, normal mood - Skin Skin exam: Present: dry, warm. Absent: rash Internal Med - H&P Results - Labs CBC & Chem 7: 12/27/17 22:42 12/27/17 22:42 - EKG Data -: EKG Interpreted by Myself - EKG Data Prior EKG available for review: yes When compared to previous EKG: there are significant changes EKG comments: 12/28/17 00:42 Atrial Fibrillation with ischemic changes laterally - Diagnostic Studies Chest x-ray Status: image reviewed by me (pulmonary edema) - VTE Reasons for not Prescribing Prophylaxis: Not indicated-Anticoagulated or INR therapeutic
[2017-12-28] MEDS: Nitroglycerin 1 INCH/GM PACKET TP SCH ×3 (01:58→13:53)
[2017-12-28 05:12] LABS: Basophils # 0.1 K/mcL (0.0-0.2); Basophils % 1.2 %; Eosinophils # 0.2 K/mcL (0.0-0.6); Eosinophils % 3.2 %; Hematocrit 40.7 % (37.5-50.1); Hemoglobin 13.5 g/dL (12.9-16.9); Immature Granulocytes % 0.2 % (0-4); Lymphocytes # 1.6 K/mcL (0.6-4.6); Lymphocytes % 31.4 %; Mean Corpuscular HGB Conc 33.2 g/dL (31.6-35.5); Mean Corpuscular Hemoglobin 27.7 pg (28.0-33.3); Mean Corpuscular Volume 83.4 fL (83.0-100.0); Mean Platelet Volume 12.3 fL (9.4-12.4); Monocytes # 0.5 K/mcL (0.0-1.3); Monocytes % 9.5 %; Neutrophils # 2.8 K/mcL (1.6-8.9); Platelet Count 143 K/mcL (140-400); Red Blood Count 4.88 M/mcL (4.19-5.50); Red Cell Distribution Width 15.2 % (11.5-14.5); Segmented Neutrophils % 54.5 %
[2017-12-28 05:17] LABS: INR 2.8; Prothrombin Time 30.9 Seconds (9.4-12.1)
[2017-12-28 05:34] LABS: Alanine Aminotransferase 16 Units/L (7-52); Albumin 4.4 g/dL (3.5-5.7); Albumin/Globulin Ratio 1.8 (1.1-2.2); Alkaline Phosphatase 87 Units/L (34-104); Aspartate Amino Transferase 20 Units/L (13-39); BUN/Creatinine Ratio 13 (6-26); Blood Urea Nitrogen 13 mg/dL (8-23); Calcium 9.4 mg/dL (8.6-10.3); Carbon Dioxide 27 mEq/L (23-29); Chloride 105 mEq/L (98-107); Chol/HDL Ratio 3.1 (0-4.9); Cholesterol 147 mg/dL (< 200); Globulin 2.4 g/dL (2.4-3.5); Glucose 93 mg/dL (70-105); HDL Cholesterol 47 mg/dL (40-59); LDL Cholesterol,Calculated 90 mg/dL (0-99); Magnesium 2.1 mg/dL (1.6-2.6); Osmolality,Calculated 292 (280-300); Potassium 3.2 mEq/L (3.5-5.1); Sodium 141 mEq/L (136-145); Total Protein 6.8 g/dL (6.4-8.9); Triglycerides 50 mg/dL (< 150); eGFR For African Americans > 60 (> 60); eGFR For Non-African Americans > 60 (> 60)
[2017-12-28] MEDS: Furosemide 40 MG/4 ML VIAL IVP SCH ×2 (09:08→17:04)
[2017-12-28] MEDS: Lisinopril 20 MG TABLET PO SCH (11:14)
--- NOTE | 2017-12-28 17:21 | Event Note ---
Date of Encounter: 12/28/17 Time of Encounter: 10:00 (1) Hypertensive emergency Current visit: Yes Status: Acute 1. Initially treated with Nitropaste, Lasix, and Hydralazine PRN. 2. BP better now, home medications resumed. 3. Likely etiology for acute pulmonary edema. 4. Monitor BP and titrate PRN (2) CHF exacerbation Current visit: Yes Status: Acute 1. Will diurese with IV Lasix. 2. Fluid restriction. 3. CT with EF 50%, and indeterminate diastolic dysfunction and mild to moderate aortic stenosis. 4. Continue IV Lasix, repeat echo. Qualifiers: Qualified Code(s): I50.43 - Acute on chronic combined systolic (congestive) and diastolic (congestive) heart failure (3) A-fib Current visit: Yes Status: Chronic 1. Rate controlled. Continue Coumadin Qualifiers: Atrial fibrillation type: chronic Qualified Code(s): I48.2 - Chronic atrial fibrillation (4) DVT prophylaxis Current visit: No Status: Acute 1. Anticoagulated with Coumadin -- continue.
--- NOTE | 2017-12-28 17:49 | Electrocardiograph Report ---
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
[2017-12-28] MEDS ORDERED: Warfarin perPT PO PRN (18:00)
[2017-12-28] MEDS ORDERED: *HR* Warfarin 5 MG TABLET PO ONE (18:00)
[2017-12-29 07:07] LABS: INR 2.2; Prothrombin Time 24.1 Seconds (9.4-12.1)
[2017-12-29] MEDS: Lisinopril 20 MG TABLET PO SCH (08:18)
[2017-12-29] MEDS: Furosemide 40 MG/4 ML VIAL IVP SCH ×2 (08:18→16:58)
[2017-12-29 15:22] LABS: Potassium 4.2 mEq/L (3.5-5.1)
--- NOTE | 2017-12-29 15:37 | Internal Med Progress Note ---
Date of Encounter: 12/29/17 Time of Encounter: 15:35 - Assessment and plan (1) CHF exacerbation Current Visit: Yes Status: Acute Assessment and plan: hx CHF. Resented with worsening shortness of breath. CXR concerning for pneumonia or pulmonary edema. Likely appears to be CHF exacerbation with rails and lower extremity edema on exam. BNP 911. 12/2017 TTE with EF 45%, systolic dysfunction, indeterminate diastolic dysfunction, mild aortic and mitral regurgitation and moderate pulmonary hypertension (Echo unchanged from 04/2016). Holding home Lasix. Clinically appears to be diuresing well with improvement in shortness of breath and improving lower extremity edema (questionable accuracy of intake/output and daily weights). Suspect exacerbation secondary to dietary noncompliance as patient reports he does not follow low-sodium diet. Cont IV lasix for now. Transition to home lasix on 12/30/17. Continue daily weights, strict intake and output, low NA diet. Qualifiers: Qualified Code(s): I50.43 - Acute on chronic combined systolic (congestive) and diastolic (congestive) heart failure (2) Hypertensive emergency Current Visit: Yes Status: Acute Assessment and plan: with SBPs 200s on arrival; possibly contributing to CHF exacerbation. Initially treated with Nitropaste, IV Haldol drowsing and Lasix. BP improved. Continue home BP medication. Monitor BP and titrate PRN (3) A-fib Current Visit: Yes Status: Chronic Assessment and plan: per hx. rate controlled. Continue home BB, Coumadin. Qualifiers: Atrial fibrillation type: chronic Qualified Code(s): I48.2 - Chronic atrial fibrillation (4) DVT prophylaxis Current Visit: No Status: Acute Assessment and plan: Coumadin - Subjective Interval history: Seen and exami rachele at bedside; patient is new to me. Information obtained from chart review and patient report. Patient says he feels better all my exam. Says shortness of breath significantly improved as is lower extremity edema. He reports not following a low-sodium diet and this is likely the cause of the CHF exacerbation. No chest pain - Constitutional Vitals: Temp Pulse Resp BP Pulse Ox 97.5 F L 67 18 131/88 95 12/29/17 11:34 12/29/17 11:34 12/29/17 11:34 12/29/17 11:34 12/29/17 13:40 General appearance: Present: cooperative, A&O X 3, pleasant, answers questions appropriately - Head Head exam: Present: atraumatic, normocephalic - Eye Eye exam: Present: PERRL, conjuntiva pink, sclera anicteric Pupils: Present: PERRL - Neck Neck exam general surgery: Present: supple, trachea midline. Absent: lymphadenopathy - Respiratory Respiratory exam: Present: CTAB, rales. Absent: accessory muscle use, rhonchi, wheezes - Cardiovascular Cardiovascular exam: Present: RRR, +S1, +S2. Absent: diastolic murmur, gallop, rubs, systolic murmur - GI/Abdominal GI/Abdominal exam: Present: normal bowel sounds, soft, no peritoneal signs. Absent: distended, tenderness - Extremities Exam Extremities exam: Present: pedal edema, warm, radial pulses palpable and symmetrical. Absent: calf tenderness, cyanotic - Neurological Exam Neurological exam: Present: CN II-XII intact, oriented X3, no focal deficits. Absent: pronater drift, facial droop, speech deficit - Skin Skin exam: Present: dry, intact Internal Medicine: Result - Labs CBC & Chem 7: 12/28/17 04:57 12/29/17 14:43 Labs: BMP 12/29/17 14:43 Potassium 4.2 - ABG Interpretation ABG results: PT/INR, D-dimer PT 24.1 Seconds (9.4-12.1) H 12/29/17 06:12 - Impressions Impressions Echocardiogram 12/28/17 11:10 Impressions: Technically sub-optimal due to poor echocardiographic windows. LVEF 45%. Segmental left ventricular systolic dysfunction. Atypical septal motion consistent with post-operative status. Indeterminate diastolic function. Normal right ventricular structure and function. Severely dilated left atrium. Mild aortic regurgitation. Mild mitral regurgitation, which is eccentric and possibly underestimated. Moderate pulmonary hypertension. Left Ventricular Wall Motion: Rest Echo Findings The apical septal and mid anterior septal machado were hypokinetic. All other wall segments showed normal motion. Findings: Study Quality * Technically sub-optimal due to poor echocardiographic windows. ECG Findings * Difficult to determine rhythm, possibly atrial fibrillation. Left Ventricle * LVEF 45%. * Segmental left ventricular systolic dysfunction. * Atypical septal motion consistent with post-operative status. * Indeterminate diastolic function. Right Ventricle * Normal right ventricular structure and function. Left Atrium * Severely dilated left atrium. Right Atrium * Mildly dilated right atrium. Interatrial Septum * Interatrial septum not well evaluated. Aortic Valve * Trileaflet aortic valve. * Mildly calcified aortic valve leaflets. * Mild aortic regurgitation. * No aortic stenosis. Mitral Valve * Mild mitral annular calcification * Mild mitral regurgitation, which is eccentric and possibly underestimated. * No mitral stenosis. Tricuspid Valve * Normal tricuspid valve structure. * Trace tricuspid regurgitation. * Moderate pulmonary hypertension. Pulmonic Valve * Normal pulmonic valve structure and function. * Trace pulmonic regurgitation. Aorta * Normally sized aortic root. Pericardium * The pericardium appears normal. IVC * The IVC is not well evaluated. Pulmonary Artery * Normal visualized portions of the main pulmonary artery. - VTE Reasons for not Prescribing Prophylaxis: Not indicated-Anticoagulated or INR therapeutic Consult Discharge Plan - Plan Referrals: Chato Leos MD [Primary Care Provider] -
[2017-12-29 15:46] LABS: BUN/Creatinine Ratio 17 (6-26); Blood Urea Nitrogen 18 mg/dL (8-23); Calcium 9.5 mg/dL (8.6-10.3); Carbon Dioxide 25 mEq/L (23-29); Chloride 102 mEq/L (98-107); Glucose 99 mg/dL (70-105); Osmolality,Calculated 284 (280-300); Sodium 136 mEq/L (136-145); eGFR For African Americans > 60 (> 60); eGFR For Non-African Americans > 60 (> 60)
[2017-12-29] MEDS ORDERED: *HR* Warfarin 5 MG TABLET PO SCH (18:00)
[2017-12-30 04:59] LABS: INR 2.3; Prothrombin Time 25.3 Seconds (9.4-12.1)
[2017-12-30 05:11] LABS: BUN/Creatinine Ratio 17 (6-26); Blood Urea Nitrogen 18 mg/dL (8-23); Calcium 9.2 mg/dL (8.6-10.3); Carbon Dioxide 27 mEq/L (23-29); Chloride 103 mEq/L (98-107); Glucose 84 mg/dL (70-105); Osmolality,Calculated 289 (280-300); Potassium 3.5 mEq/L (3.5-5.1); Sodium 139 mEq/L (136-145); eGFR For African Americans > 60 (> 60); eGFR For Non-African Americans > 60 (> 60)
[2017-12-30 07:55] VITALS: BP 155/101
[2017-12-30] MEDS ORDERED: Furosemide 20 MG TABLET PO SCH (09:00)
[2017-12-30] MEDS: Lisinopril 20 MG TABLET PO SCH (09:22)
--- NOTE | 2017-12-30 11:20 | Discharge Summary ---
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 Orders not resulted at time of discharge: Pending orders 12/31/17 04:00 Prothrombin Time INR [COAG] AM 0400 01/01/18 04:00 Prothrombin Time INR [COAG] AM 0400 01/02/18 04:00 Prothrombin Time INR [COAG] AM 0400 01/03/18 04:00 Prothrombin Time INR [COAG] AM 0400 Date of Encounter: 12/30/17 Time of Encounter: 10:00 - Discharge Diagnosis (1) Acute systolic heart failure Priority: Primary Status: Acute Hospital course: Patient is an 87-year-old male with past medical history significant for atrial fibrillation, ischemic cardiomyopathy, CVA and hypertension who presents to the ER on 12/28/17 due to shortness of breath. Patient reported a 3 to 4 day history of shortness of breath so decided to come to the ER for evaluation. In the ER, he was noted be in acute pulmonary edema and was given sublingual nitroglycerin and Lasix with noted steady improvement. Patient was admitted to the hospital service for acute on chronic systolic heart failure. During patients hospital stay his symptoms resolved after IV diuresis. Patient is still requiring supplemental oxygenation so will be discharged to continue supplemental oxygen and to continue home dose of oral Lasix. Patient was also educated about the importance of low sodium diet. She will follow up with cardiology as an outpatient. - Time Spent with Patient Total time spent providing and/or coordinating discharge services: Less than 30 minutes - Discharge Medications Home Medications: Celecoxib [Celebrex] 200 mg PO DAILY 02/20/17 [History] Docusate Sodium [Stool Softener] 100 mg PO BID 02/20/17 [History] Lisinopril [Zestril] 20 mg PO DAILY 02/20/17 [History] Simvastatin [Zocor] 80 mg PO DAILY 02/20/17 [History] Tamsulosin [Flomax] 0.8 mg PO HS 02/20/17 [History] Psyllium Husk [Metamucil] 5 gm PO BID 02/21/17 [History] Furosemide [Lasix] 20 mg PO DAILY #30 tablet 02/22/17 [Rx] Warfarin Sodium 5 mg PO DAILY #0 02/22/17 [Rx] Polyethylene Glycol 3350 [MiraLAX Powder Bulk 17.9 Oz] 1 scoop PO DAILY #510 gm 03/30/17 [Rx] Allergies/Adverse Reactions: 3 Allergy/AdvReac Type Severity Reaction Status Date / Time No Known Allergies Allergy Verified 02/20/17 15:51 Date of admission: 12/28/17 00:20 Primary care physician: Chato Leos MD Consults: 12/28/17 11:12 Consult to Nurse Navigator [CONS] Routine Comment: CHF education 12/29/17 14:05 Consult to Makeup Instructor [CONS] Routine Reason for SW Consult: oxygen placement - Constitutional Vitals: Temp Pulse Resp BP Pulse Ox 98.1 F 78 16 155/101 98 12/30/17 07:52 12/30/17 07:52 12/30/17 07:52 12/30/17 07:52 12/30/17 09:14 General appearance: Present: cooperative, A&O X 3, pleasant, answers questions appropriately - Patient Status Disposition: Home, Self-Care Condition: Fair - Discharge Instructions Instructions: Heart Failure (DC), Using Oxygen at Home (DC) Follow Up With: Chato Leos MD [Primary Care Provider] - 01/05/18 10:00 am Chato Huston MD [Partnered Physician] - 01/20/18 9:30 am () - VTE Reasons for not Prescribing Prophylaxis: Not indicated-Anticoagulated or INR therapeutic
== END 2017-12-30 14:36 | disposition home or self-care (01) | DRG 292 ==
LOC: 2SOUTHHOLD 20:58 → EMEROO 20:58 → SUATTDRO 12-28 00:20 → 2SOUTHHOLD 12-28 01:06
PROVIDERS: ADMIT Pediatrics; ATTEND Hospitalist